=== PATIENT | female | born 1945 | race Caucasian/White ===

== ENCOUNTER 2024-03-23 14:41 | Emergency (ER) | payer MEDICARE, OTHER ==
[~2024-03-23] VITALS: Ht 160 cm; Wt 74.4 kg
[2024-03-23 14:54] VITALS: BP_SYST 81; TEMP 98
[2024-03-23] MEDS ORDERED: KETOROLAC TROMETHAMINE INJ 30 MG/ML VIAL ONE (16:02)
[2024-03-23] MEDS: KETOROLAC TROMETHAMINE INJ 30 MG/ML VIAL IM ONE (16:05)
[2024-03-23 16:06] VITALS: O2SAT 99
== END 2024-03-23 16:07 | disposition home or self-care (01) ==
LOC: ER 14:48
DX: M71.22 Synovial cyst of popliteal space [Baker], left knee (principal); I10 Essential (primary) hypertension; E03.9 Hypothyroidism, unspecified; Z87.19 Personal history of other diseases of the digestive system; Z90.49 Acquired absence of other specified parts of digestive tract; Z90.89 Acquired absence of other organs
CPT/HCPCS: 99283; 96372; J1885